=== PATIENT | male | born 1985 | race Caucasian/White ===

== ENCOUNTER → 2019-04-29 | Outpatient (CLI) | payer SELFPAY | PROVIDERS: Family Provider Family Medicine; Visit Provider Nurse Practitioner Psychiatric/Mental Health | DX: F41.9 Anxiety disorder, unspecified (principal); F39 Unspecified mood [affective] disorder; F15.10 Other stimulant abuse, uncomplicated ==

== ENCOUNTER → 2019-05-05 13:22 | Outpatient (BNVA) | payer MEDICAID, SELFPAY | PROVIDERS: Family Provider Family Medicine; PCP Family Medicine; Referring Provider Family Medicine; Visit Provider Family Medicine | DX: I10 Essential (primary) hypertension (principal); E78.00 Pure hypercholesterolemia, unspecified; E11.9 Type 2 diabetes mellitus without complications | CPT/HCPCS: 81003; 82947 ==

== ENCOUNTER → 2019-05-27 10:45 | Outpatient (BNVA) | payer MEDICAID, SELFPAY | PROVIDERS: Family Provider Family Medicine; PCP Family Medicine; Visit Provider Nurse Practitioner Psychiatric/Mental Health | DX: F15.159 Other stimulant abuse with stimulant-induced psychotic disorder, unspecified (principal); F41.9 Anxiety disorder, unspecified; F39 Unspecified mood [affective] disorder | CPT/HCPCS: 99213 ==

== ENCOUNTER → 2019-08-19 08:30 | Outpatient (BNVA) | payer MEDICAID, SELFPAY | PROVIDERS: Family Provider Family Medicine; PCP Family Medicine; Visit Provider Nurse Practitioner Psychiatric/Mental Health | DX: F41.9 Anxiety disorder, unspecified (principal); F15.159 Other stimulant abuse with stimulant-induced psychotic disorder, unspecified; F39 Unspecified mood [affective] disorder | CPT/HCPCS: 99212 ==

== ENCOUNTER → 2019-11-05 12:09 | Outpatient (BNVA) | payer MEDICAID, SELFPAY | PROVIDERS: Family Provider Family Medicine; PCP Family Medicine; Visit Provider Family Medicine | DX: E11.9 Type 2 diabetes mellitus without complications (principal); E78.00 Pure hypercholesterolemia, unspecified; I10 Essential (primary) hypertension; F41.1 Generalized anxiety disorder; F19.10 Other psychoactive substance abuse, uncomplicated; Z68.34 Body mass index [BMI] 34.0-34.9, adult; F17.211 Nicotine dependence, cigarettes, in remission | CPT/HCPCS: 80053; 80061; 83036; 83721 ==

== ENCOUNTER → 2019-11-11 08:13 | Outpatient (BNVA) | payer MEDICAID, SELFPAY | PROVIDERS: Family Provider Family Medicine; PCP Family Medicine; Visit Provider Nurse Practitioner Psychiatric/Mental Health | DX: F15.159 Other stimulant abuse with stimulant-induced psychotic disorder, unspecified (principal); E11.9 Type 2 diabetes mellitus without complications; E78.00 Pure hypercholesterolemia, unspecified; F39 Unspecified mood [affective] disorder; F10.10 Alcohol abuse, uncomplicated | CPT/HCPCS: 99212 ==

== ENCOUNTER → 2019-12-11 11:36 | Outpatient (BNVA) | payer MEDICAID, SELFPAY | PROVIDERS: Family Provider Family Medicine; PCP Family Medicine; Visit Provider Family Medicine | DX: E11.9 Type 2 diabetes mellitus without complications (principal) | CPT/HCPCS: 36416; 82962 ==

== ENCOUNTER → 2020-01-09 08:37 | Outpatient (BNVA) | payer MEDICAID, SELFPAY | PROVIDERS: Family Provider Family Medicine; PCP Family Medicine; Visit Provider Family Medicine | DX: E11.9 Type 2 diabetes mellitus without complications (principal) | CPT/HCPCS: 36416; 82962 ==

== ENCOUNTER → 2020-02-02 08:00 | Outpatient (BNVA) | payer MEDICAID, SELFPAY | PROVIDERS: Family Provider Family Medicine; PCP Family Medicine; Visit Provider Nurse Practitioner Psychiatric/Mental Health | DX: F15.159 Other stimulant abuse with stimulant-induced psychotic disorder, unspecified (principal); E78.00 Pure hypercholesterolemia, unspecified; F41.1 Generalized anxiety disorder | CPT/HCPCS: 99212 ==

== ENCOUNTER → 2020-03-01 07:45 | Outpatient (BNVA) | payer MEDICAID, SELFPAY | PROVIDERS: Family Provider Family Medicine; PCP Family Medicine; Visit Provider Nurse Practitioner Psychiatric/Mental Health | DX: F41.1 Generalized anxiety disorder (principal); F15.159 Other stimulant abuse with stimulant-induced psychotic disorder, unspecified | CPT/HCPCS: 99212 ==

== ENCOUNTER → 2020-04-12 08:48 | Outpatient (BNVA) | payer MEDICAID, SELFPAY | PROVIDERS: Family Provider Family Medicine; PCP Family Medicine; Visit Provider Nurse Practitioner Psychiatric/Mental Health | DX: F15.159 Other stimulant abuse with stimulant-induced psychotic disorder, unspecified (principal); F41.1 Generalized anxiety disorder | CPT/HCPCS: 99213 ==

== ENCOUNTER → 2020-05-10 07:51 | Outpatient (BNVA) | payer MEDICAID, SELFPAY | PROVIDERS: Family Provider Family Medicine; PCP Family Medicine; Visit Provider Nurse Practitioner Psychiatric/Mental Health | DX: F41.1 Generalized anxiety disorder (principal); F15.159 Other stimulant abuse with stimulant-induced psychotic disorder, unspecified | CPT/HCPCS: 99212 ==

== ENCOUNTER → 2020-05-18 10:43 | Outpatient (BNVA) | payer MEDICAID, SELFPAY | PROVIDERS: Family Provider Family Medicine; PCP Family Medicine; Visit Provider Family Medicine | DX: E78.00 Pure hypercholesterolemia, unspecified (principal); I10 Essential (primary) hypertension; E11.9 Type 2 diabetes mellitus without complications; R00.0 Tachycardia, unspecified | CPT/HCPCS: 80053; 80061; 83036; 83721 ==

== ENCOUNTER → 2020-07-26 08:41 | Outpatient (BNVA) | payer MEDICAID, SELFPAY | PROVIDERS: Family Provider Family Medicine; PCP Family Medicine; Visit Provider Nurse Practitioner Psychiatric/Mental Health | DX: F41.1 Generalized anxiety disorder (principal); F15.159 Other stimulant abuse with stimulant-induced psychotic disorder, unspecified | CPT/HCPCS: 99213 ==

== ENCOUNTER → 2020-10-19 07:38 | Outpatient (BNVA) | payer MEDICAID, SELFPAY | PROVIDERS: Family Provider Family Medicine; PCP Family Medicine; Visit Provider Nurse Practitioner Psychiatric/Mental Health | DX: F15.159 Other stimulant abuse with stimulant-induced psychotic disorder, unspecified (principal); F41.1 Generalized anxiety disorder | CPT/HCPCS: 99213 ==

== ENCOUNTER → 2021-01-11 07:45 | Outpatient (BNVA) | payer MEDICAID, SELFPAY | PROVIDERS: Family Provider Family Medicine; PCP Family Medicine; Visit Provider Nurse Practitioner Psychiatric/Mental Health | DX: F41.1 Generalized anxiety disorder (principal); F15.159 Other stimulant abuse with stimulant-induced psychotic disorder, unspecified | CPT/HCPCS: 99213 ==

== ENCOUNTER → 2021-01-31 11:34 | Outpatient (BNVA) | payer MEDICAID, SELFPAY | PROVIDERS: Family Provider Family Medicine; PCP Family Medicine; Visit Provider Family Medicine | DX: E11.9 Type 2 diabetes mellitus without complications (principal); E78.00 Pure hypercholesterolemia, unspecified; F19.10 Other psychoactive substance abuse, uncomplicated; I10 Essential (primary) hypertension; M17.12 Unilateral primary osteoarthritis, left knee | CPT/HCPCS: 80053; 80061; 83036; 83721; 85025 ==

== ENCOUNTER → 2021-03-02 13:06 | Outpatient (BNVA) | payer MEDICAID, SELFPAY | PROVIDERS: Family Provider Family Medicine; PCP Family Medicine; Referring Provider Family Medicine; Visit Provider Specialist | DX: M17.12 Unilateral primary osteoarthritis, left knee (principal) | CPT/HCPCS: 73560; 73565 ==

== ENCOUNTER → 2021-03-03 08:46 | Outpatient (BNVA) | payer MEDICAID, SELFPAY | PROVIDERS: Family Provider Family Medicine; PCP Family Medicine; Visit Provider Nurse Practitioner Psychiatric/Mental Health | DX: F15.159 Other stimulant abuse with stimulant-induced psychotic disorder, unspecified (principal); F41.1 Generalized anxiety disorder | CPT/HCPCS: 99213 ==

== ENCOUNTER 2021-04-11 09:17 | Outpatient (CLI) | payer MEDICAID, SELFPAY ==
--- NOTE | 2021-04-11 09:30 | MR_ITS ---
WS: [id number] MRI LEFT KNEE NONCONTRAST TECHNIQUE: Axial PD, coronal PD fat sat, coronal PD, sagittal PD, and sagittal PD fat-sat images obta ined. CLINICAL INFORMATION: M17.12 - Unilateral primary osteoarthritis, left knee COMPARISON: None. FINDINGS: Normal ACL and PCL. Distal quadriceps and patella tendons are intact. Slightly hypertrophic patella. Chronic thinning of the medial and lateral meniscus. Moderate narrowing of the medial and lateral joint compartments with grade II chondromalacia. No subc hondral edema. Small amount of subchondral edema involving the lateral joint compartment tibial plate au. Normal medial and lateral patellar retinaculum. Mild chondromalacia patella. No subchondral edema. Di stal quadriceps and patella tendons appear intact. Normal popliteal fossa. Normal medial collateral l igament. Small amount of fluid deep to the lateral collateral ligament which appears intact. MR/MR knee LT wo con* [id number] IMPRESSION: 1. Normal anterior and posterior cruciate ligaments. 2. Moderate joint space narrowing involving the medial and lateral joint emerita rtments with grade II chondromalacia. Small amount of subchondral edema involvi ng the lateral tibial plateau. 3. Small amount of fluid deep to the lateral collateral ligament which appears intact. 4. Mild chondromalacia patella. Normal patellar retinaculum. 5. Chronic thinning and intrasubstance signal abnormality involving the menisc us. No acute appearing meniscal tears. Outbridge grading: grade III: partial-thickness cartilage loss with focal ulcer ation
== END 2021-04-11 09:18 | disposition home or self-care (01) ==
LOC: RADSHAW 09:19
PROVIDERS: PCP Family Medicine; Visit Provider Specialist
DX: M17.12 Unilateral primary osteoarthritis, left knee (principal); M22.42 Chondromalacia patellae, left knee
CPT/HCPCS: 73721

== ENCOUNTER → 2021-05-11 11:07 | Outpatient (BNVA) | payer MEDICAID, SELFPAY | PROVIDERS: PCP Family Medicine; Visit Provider Family Medicine | DX: E11.9 Type 2 diabetes mellitus without complications (principal); E78.00 Pure hypercholesterolemia, unspecified; I10 Essential (primary) hypertension | CPT/HCPCS: 80053; 80061; 83036 ==

== ENCOUNTER → 2021-05-18 10:25 | Outpatient (BNVA) | payer MEDICAID, SELFPAY | PROVIDERS: PCP Family Medicine; Referring Provider Family Medicine; Visit Provider Anesthesiology Pain Medicine | DX: G89.29 Other chronic pain (principal); M47.816 Spondylosis without myelopathy or radiculopathy, lumbar region; M47.814 Spondylosis without myelopathy or radiculopathy, thoracic region; M41.9 Scoliosis, unspecified; Z87.891 Personal history of nicotine dependence | CPT/HCPCS: 99204 ==

== ENCOUNTER 2021-05-18 14:38 | Outpatient (CLI) | payer MEDICAID, SELFPAY ==
--- NOTE | 2021-05-18 14:42 | XR_ITS ---
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 COMPARISON: 2016 FINDINGS: Mild thoracic curve. Mild thoracic kyphosis. Anterior hypertrophic changes mid and lower thoracic spi ne.Chronic appearing biconcave compression deformities in the lower thoracic and upper lumbar spine. This appears relatively stable since 2016. XR/XR thoracic spine 3V* [id number] IMPRESSION: No acute thoracic spine findings.
--- NOTE | 2021-05-18 14:42 | XR_ITS ---
WS: [id number] LUMBAR SPINE TECHNIQUE: 5 views of the lumbar spine CLINICAL INFORMATION: M47.816 - Spondylosis without myelopathy or radiculopathy... COMPARISON: None. FINDINGS: Small riblets at T12. 5 nonrib-bearing lumbar vertebral bodies. Disc space narrowing worse L4-L5 and L5-S1. Bilateral pars defects L5-S1 with facet arthropathy. Slight anterolisthesis L5 on S1 measuring 4 mm is unchanged. No acute compression fractures. XR/XR lumbar spine min 4V [id number] IMPRESSION: 1. Disc space narrowing worse L4-L5 and L5-S1. 2. Bilateral pars defects L5-S1 with facet arthropathy. Slight anterolisthesis L5 on S1 measuring 4 mm is unchanged. 3. No acute compression fractures.
== END 2021-05-18 14:39 | disposition home or self-care (01) ==
LOC: RADOUTREAD 14:40 → WPI 14:41
PROVIDERS: PCP Family Medicine; Visit Provider Anesthesiology Pain Medicine
DX: M47.816 Spondylosis without myelopathy or radiculopathy, lumbar region (principal); M47.814 Spondylosis without myelopathy or radiculopathy, thoracic region
CPT/HCPCS: 72072; 72110

== ENCOUNTER → 2021-06-08 08:50 | Outpatient (BNVA) | payer MEDICAID, SELFPAY | PROVIDERS: PCP Family Medicine; Visit Provider Anesthesiology Pain Medicine | DX: G89.29 Other chronic pain (principal); M47.816 Spondylosis without myelopathy or radiculopathy, lumbar region; M47.814 Spondylosis without myelopathy or radiculopathy, thoracic region; M41.9 Scoliosis, unspecified; Z87.891 Personal history of nicotine dependence | CPT/HCPCS: 99214 ==

== ENCOUNTER → 2021-06-09 08:31 | Outpatient (BNVA) | payer MEDICAID, SELFPAY | PROVIDERS: PCP Family Medicine; Visit Provider Nurse Practitioner Psychiatric/Mental Health | DX: F41.1 Generalized anxiety disorder (principal); F15.159 Other stimulant abuse with stimulant-induced psychotic disorder, unspecified; M54.9 Dorsalgia, unspecified; G89.29 Other chronic pain | CPT/HCPCS: 99214 ==

== ENCOUNTER → 2021-07-05 09:31 | Outpatient (BNVA) | payer MEDICAID, SELFPAY | PROVIDERS: PCP Family Medicine; Visit Provider Nurse Practitioner Psychiatric/Mental Health | DX: F41.1 Generalized anxiety disorder (principal); M54.9 Dorsalgia, unspecified; F15.159 Other stimulant abuse with stimulant-induced psychotic disorder, unspecified; G89.29 Other chronic pain | CPT/HCPCS: 99214 ==

== ENCOUNTER → 2021-07-07 08:46 | Outpatient (BNVA) | payer MEDICAID, SELFPAY | PROVIDERS: PCP Family Medicine; Visit Provider Anesthesiology Pain Medicine | DX: G89.29 Other chronic pain (principal); M47.816 Spondylosis without myelopathy or radiculopathy, lumbar region; M47.814 Spondylosis without myelopathy or radiculopathy, thoracic region; M41.9 Scoliosis, unspecified; G62.9 Polyneuropathy, unspecified; Z87.891 Personal history of nicotine dependence | CPT/HCPCS: 99214 ==

== ENCOUNTER → 2021-08-23 08:06 | Outpatient (BNVA) | payer MEDICAID, SELFPAY | PROVIDERS: PCP Family Medicine; Visit Provider Nurse Practitioner Psychiatric/Mental Health | DX: F41.1 Generalized anxiety disorder (principal); F15.159 Other stimulant abuse with stimulant-induced psychotic disorder, unspecified; M54.9 Dorsalgia, unspecified; G89.29 Other chronic pain | CPT/HCPCS: 99214 ==

== ENCOUNTER → 2021-09-13 09:14 | Outpatient (BNVA) | payer MEDICAID, SELFPAY | PROVIDERS: PCP Family Medicine; Visit Provider Family Medicine | DX: E11.42 Type 2 diabetes mellitus with diabetic polyneuropathy (principal); E78.00 Pure hypercholesterolemia, unspecified; M54.9 Dorsalgia, unspecified; G89.29 Other chronic pain; F19.10 Other psychoactive substance abuse, uncomplicated; I10 Essential (primary) hypertension | CPT/HCPCS: 80053; 80061; 82607; 83036; 85025 ==

== ENCOUNTER → 2021-10-18 08:07 | Outpatient (BNVA) | payer MEDICAID, SELFPAY | PROVIDERS: PCP Family Medicine; Visit Provider Nurse Practitioner Psychiatric/Mental Health | DX: F41.1 Generalized anxiety disorder (principal); F15.159 Other stimulant abuse with stimulant-induced psychotic disorder, unspecified; M54.9 Dorsalgia, unspecified; G89.29 Other chronic pain | CPT/HCPCS: 99213 ==

== ENCOUNTER → 2021-10-27 13:45 | Outpatient (BNVA) | payer MEDICAID, SELFPAY | PROVIDERS: PCP Family Medicine; Visit Provider Anesthesiology Pain Medicine | DX: G89.29 Other chronic pain (principal); M47.816 Spondylosis without myelopathy or radiculopathy, lumbar region; M47.814 Spondylosis without myelopathy or radiculopathy, thoracic region; M41.9 Scoliosis, unspecified; M79.604 Pain in right leg; M79.605 Pain in left leg; G62.9 Polyneuropathy, unspecified; Z87.891 Personal history of nicotine dependence | CPT/HCPCS: 99214; J1100 ==

== ENCOUNTER → 2021-12-29 12:51 | Outpatient (BNVA) | payer MEDICAID, SELFPAY | PROVIDERS: PCP Family Medicine; Visit Provider Anesthesiology Pain Medicine | DX: G89.29 Other chronic pain (principal); M47.816 Spondylosis without myelopathy or radiculopathy, lumbar region; M47.814 Spondylosis without myelopathy or radiculopathy, thoracic region; G62.9 Polyneuropathy, unspecified; Z87.891 Personal history of nicotine dependence; M41.9 Scoliosis, unspecified | CPT/HCPCS: 99214 ==

== ENCOUNTER → 2022-03-02 12:56 | Outpatient (BNVA) | payer MEDICAID, SELFPAY | PROVIDERS: PCP Family Medicine; Visit Provider Anesthesiology Pain Medicine | DX: G89.29 Other chronic pain (principal); M47.816 Spondylosis without myelopathy or radiculopathy, lumbar region; M47.814 Spondylosis without myelopathy or radiculopathy, thoracic region; M41.9 Scoliosis, unspecified; M25.571 Pain in right ankle and joints of right foot; M25.572 Pain in left ankle and joints of left foot; G62.9 Polyneuropathy, unspecified; Z87.891 Personal history of nicotine dependence | CPT/HCPCS: 99214 ==

== ENCOUNTER → 2022-03-14 10:55 | Outpatient (BNVA) | payer MEDICAID, SELFPAY | PROVIDERS: PCP Family Medicine; Visit Provider Podiatrist Foot & Ankle Surgery | DX: M77.41 Metatarsalgia, right foot (principal); M77.42 Metatarsalgia, left foot; M21.6X1 Other acquired deformities of right foot; M21.6X2 Other acquired deformities of left foot; E11.9 Type 2 diabetes mellitus without complications; G62.9 Polyneuropathy, unspecified; Z79.84 Long term (current) use of oral hypoglycemic drugs | CPT/HCPCS: 73630 ==

== ENCOUNTER 2022-03-14 11:33 | Outpatient (CLI) | payer MEDICAID, SELFPAY | END 2022-03-14 11:34 | disposition home or self-care (01) | LOC: SPT 11:34 | PROVIDERS: PCP Family Medicine; Visit Provider Podiatrist Foot & Ankle Surgery | DX: Z46.89 Encounter for fitting and adjustment of other specified devices (principal); M79.671 Pain in right foot; M79.672 Pain in left foot; M77.41 Metatarsalgia, right foot; M77.42 Metatarsalgia, left foot; M21.6X1 Other acquired deformities of right foot; M21.6X2 Other acquired deformities of left foot; E11.9 Type 2 diabetes mellitus without complications; G62.9 Polyneuropathy, unspecified; Z79.84 Long term (current) use of oral hypoglycemic drugs | CPT/HCPCS: 97760; 99204; L4397 ==

== ENCOUNTER → 2022-03-22 13:26 | Outpatient (BNVA) | payer MEDICAID, SELFPAY | PROVIDERS: PCP Family Medicine; Visit Provider Family Medicine | DX: E78.00 Pure hypercholesterolemia, unspecified (principal); E11.9 Type 2 diabetes mellitus without complications; I10 Essential (primary) hypertension | CPT/HCPCS: 80053; 80061; 83036; 83721; 85025 ==

== ENCOUNTER → 2022-06-05 09:44 | Outpatient (BNVA) | payer MEDICAID, SELFPAY | PROVIDERS: PCP Family Medicine; Visit Provider Anesthesiology Pain Medicine | DX: G89.29 Other chronic pain (principal); M47.816 Spondylosis without myelopathy or radiculopathy, lumbar region; M47.814 Spondylosis without myelopathy or radiculopathy, thoracic region; M41.9 Scoliosis, unspecified; G62.9 Polyneuropathy, unspecified; M25.571 Pain in right ankle and joints of right foot; M25.572 Pain in left ankle and joints of left foot | CPT/HCPCS: 99213 ==

== ENCOUNTER → 2022-08-14 16:11 | Outpatient (BNVA) | payer MEDICAID, SELFPAY | PROVIDERS: PCP Family Medicine; Visit Provider Family Medicine | DX: E78.00 Pure hypercholesterolemia, unspecified (principal); I10 Essential (primary) hypertension; E11.9 Type 2 diabetes mellitus without complications | CPT/HCPCS: 80053; 80061; 82150; 83036; 85025 ==

== ENCOUNTER 2022-08-31 02:51 | Emergency (ER) | payer MEDICAID, SELFPAY ==
[2022-08-31 03:01] VITALS: BP 157/80; PULSE 78; RESP 16; TEMP 36.8; O2SAT 98; BMI 31.7
[2022-08-31 03:07] VITALS: BP 157/80; PULSE 76; RESP 16; O2SAT 96
--- NOTE | 2022-08-31 03:07 | W.ED.NEUROSD ---
HPI - Neuro Symptoms/Deficit General: Chief Complaint: Neuro Symptoms/Deficit Stated Complaint: right fce numb headache Time Seen by Provider: 08/31/22 02:55 Source: patient Mode of arrival: ambulatory Limitations: no limitations History of Present Illness: 37-year-old male has history of Zavala's palsy many years ago he states that he has noticed some numbness to the right side of his face throughout the day and then over the last few hours had increasing facial droop. He does have severe facial droop to the right side with no eyebrow sparing. He states that a hard time closing his eyes well. He denies any weakness has a mild headache he rates a 2 out of 10. Denies any fevers Associated symptoms: Reports headache(s); Deny chest pain, nausea or vomiting Review of Systems Const: Denies: fever(s), chills or body aches Eyes: Denies: blurry vision or eye discomfort ENMT: Denies: throat pain or dental pain Card: Denies: chest pain Resp: Denies: dyspnea GI: Denies: abdominal pain, nausea, vomiting or diarrhea Musc: Denies: neck pain or back pain Skin/Breast: Denies: rash Neuro: Reports: headache(s) PFSH ED PFSH: Medical History Abuse, drug or alcohol Arthritis of knee, left Chronic back pain Essential hypertension Hypercholesteremia Psychiatric care Social History Smoking and tobacco status: former smoker Second hand smoke exposure: No Alcohol intake: never Substance/Drug Use: never Physical Exam Const: COMMON NORMALS: no acute distress, patient oriented x3 and healthy appearing HENMT: COMMON NORMALS: normocephalic and atraumatic HEAD & SCALP: normocephalic and atraumatic Eye: COMMON NORMALS: Equal, round and reactive pupils present, EOMs intact bilaterally and conjunctivae normal CONJUNCTIVA: Yes conjunctivae normal PUPIL: Yes Equal, round and reactive pupils present Neck/C-Spine: COMMON NORMALS: full ROM and supple Chest: COMMONS NORMALS: normal inspection of the chest Resp: COMMON NORMALS: normal respiratory effort Cardio: COMMON NORMALS: regular rate, regular rhythm and No murmurs present (Cardio) RATE: regular rate RHYTHM: regular rhythm GI: COMMON NORMALS: Normal to inspection, nondistended, normoactive bowel sounds present, Soft to palpation, non-tender and no masses PALPATION: Yes Soft to palpation Extremity: COMMON NORMALS: normal to inspection and full ROM Neuro: COMMON NORMALS: patient oriented x3 and moves all extremities SPEECH: speech normal GAIT: Yes Normal gait present MOTOR EXAM: 5/5 motor strength present throughout OTHER: Dense Zavala's palsy to the right side with right-sided facial droop Psych: COMMON NORMALS: mental status grossly normal, Normal thought process present and cooperative THOUGHT PROCESS: Normal thought process present Skin: COMMON NORMALS: no rashes or lesions noted and no wounds GENERAL SKIN EXAM: no rashes or lesions noted Course Vital Signs: Vital signs: Vital Signs Temperature 98.3 F 08/31/22 03:01 Pulse Rate 76 08/31/22 03:07 Respiratory Rate 16 08/31/22 03:07 Blood Pressure 157/80 08/31/22 03:07 Pulse Oximetry 96 08/31/22 03:07 Oxygen Delivery Me thod Room Air 08/31/22 03:01 MDM - Neuro Symptoms/Deficit Medical Decision Making Patient presents with right-sided facial droop consistent with Zavala's palsy is a mild headache no signs subarachnoid hemorrhage he states that 2 out of 10 we will treat him with prednisone and valacyclovir did inform him he needs to keep his eye moist with eyedrops and did tape it shut at night. Differential Diagnosis Unlikely cerebrovascular accident Discharge Plan Discharge Patient Disposition: Home Clinical Impression: Zavala's palsy Condition: Stable Prescriptions: New prednisone 50 mg tablet 50 mg PO DAILY 5 Days Qty: 10 0RF valacyclovir 1 gram tablet 1,000 mg PO Q8H 7 Days Qty: 21 0RF No Action lidocaine (PF) 10 mg/mL (1 %) syringe 1 ml Infiltration ONCE Qty: 1 0RF naproxen sodium 220 mg capsule 440 mg PO BID PRN gabapentin 300 mg capsule 300 mg PO QID 30 Days Qty: 120 5RF cyclobenzaprine 10 mg tablet 10 mg PO TID PRN (Reason: muscle spasm) Qty: 60 4RF (DME) Night Splint See Rx Instructions .Route .MEDSUPPLY Qty: 1 0RF Rx Instructions: As directed ([facility] [place]) [employer] Ultra Test Strip See Rx Instructions .Route Qty: 100 3RF Rx Instructions: to use in onetouch meter once daily 90 day supply citalopram 20 mg tablet 20 mg PO .each evening Qty: 90 0RF Rx Instructions: Take one tablet by mouth each evening olanzapine 20 mg tablet 20 mg PO DAILY Qty: 90 0RF Rx Instructions: Take one tablet daily at bedtime clonazepam 1 mg tablet 1 mg PO BID PRN (Reason: anxiety/agitation) 15 Days Qty: 30 2RF Rx Instructions: Take one tablet morning and at bedtime, if needed for anxiety/agitation olanzapine 5 mg tablet,disintegrating 5 mg PO DAILY PRN (Reason: agitation/anxiety) Qty: 10 2RF Rx Instructions: Take one tablet daily, if needed for agitation labetalol 200 mg tablet See Rx Instructions .ROUTE .COMPLEX Qty: 60 6RF Dose Instruction: take 1/2 tablet BY MOUTH TWICE DAILY FOR 1-2 weeks THEN ONE TWICE DAILY Rx Instructions: take 1/2 tablet BY MOUTH TWICE DAILY FOR 1-2 weeks THEN ONE TWICE DAILY rosuvastatin 10 mg tablet 10 mg PO DAILY Qty: 30 5RF Discharge Orders: Discharge ED (Routine); Ordered 08/31/22 Ordered By: Marcy Rios Referrals: Narendra Collier MD [Primary Care Provider] - 1-3 days Discharge Diet: Advance as tolerated Discharge Activity: Resume usual activity Patient Instructions: Zavala Palsy (ED) Coding Level of Care Code ED Poker Supervisor for Maru Campbell
[2022-08-31 03:25] VITALS: BP 144/68; PULSE 79; RESP 16; O2SAT 97
== END 2022-08-31 03:26 | disposition home or self-care (01) ==
PROVIDERS: Emergency Provider Emergency Medicine; PCP Family Medicine
DX: G51.0 Bell's palsy (principal); Z87.891 Personal history of nicotine dependence; I10 Essential (primary) hypertension
CPT/HCPCS: 99283

== ENCOUNTER → 2023-01-29 10:26 | Outpatient (BNVA) | payer MEDICAID, SELFPAY | PROVIDERS: PCP Family Medicine; Visit Provider Family Medicine | DX: G62.9 Polyneuropathy, unspecified (principal); E78.00 Pure hypercholesterolemia, unspecified; E11.9 Type 2 diabetes mellitus without complications; F15.159 Other stimulant abuse with stimulant-induced psychotic disorder, unspecified; G51.0 Bell's palsy; M54.9 Dorsalgia, unspecified; G89.29 Other chronic pain; I10 Essential (primary) hypertension | CPT/HCPCS: 80053; 80061; 83036; 85025 ==

== ENCOUNTER → 2023-03-29 18:54 | Outpatient (BNVA) | payer MEDICAID, SELFPAY | PROVIDERS: PCP Family Medicine; Visit Provider Nurse Practitioner | DX: S92.492A Other fracture of left great toe, initial encounter for closed fracture (principal); W22.8XXA Striking against or struck by other objects, initial encounter | CPT/HCPCS: 73630 ==

== ENCOUNTER 2023-11-11 17:28 | Emergency (ER) | payer MEDICAID, SELFPAY ==
[2023-11-11 17:39] VITALS: BP 176/95; PULSE 104; RESP 16; TEMP 37.2; O2SAT 96; BMI 30.8
--- NOTE | 2023-11-11 18:46 | ED_ITS ---
HPI - Wound/Laceration General: Chief Complaint: Wound/Laceration Stated Complaint: ripped toenail off, infection Time Seen by Provider: 11/11/23 18:46 History of Present Illness: 38-year-old male patient comes in today with injury to the third toe of right foot. Patient states 1 week ago he had dropped a weight on his toe and the nail had fallen off. Patient reports that it appears that the wound had healed well and he had went swimming yesterday. Patient today noticed some increased redness and tenderness to the distal toe. Patient appears nontoxic. Pulses intact to the foot. Redness is noted only to the nail area and distal toe. Patient has a history of high blood pressure. Review of Systems General: Reports: 10 or more systems reviewed and unremarkable except in HPI and below Musc: Reports: extremity pain and extremity swelling [facility] ED PFSH: Medical History Substance-induced anxiety disorder Chronic back pain Arthritis of knee, left Psychiatric care Abuse, drug or alcohol Hypercholesteremia Essential hypertension Social History Smoking and tobacco/nicotine status: former use of tobacco/nicotine Second hand smoke exposure: No Alcohol intake: never Substance/Drug Use: never Physical Exam Const: COMMON NORMALS: alert HENMT: COMMON NORMALS: normocephalic HEAD & SCALP: normocephalic Neck/C-Spine: COMMON NORMALS: full ROM Resp: COMMON NORMALS: normal respiratory effort and clear to auscultation bilaterally AUSCULTATION: clear to auscultation bilaterally Cardio: COMMON NORMALS: regular rate and regular rhythm RATE: regular rate RHYTHM: regular rhythm GI: COMMON NORMALS: Soft to palpation and non-tender PALPATION: Yes Soft to palpation Back/Pelvis: COMMON NORMALS: thoracic and lumbar spine normal to inspection Extremity: RIGHT LOWER EXTREMITY: Yes foot & digits (Third toe, distal redness and swelling nail avulsed) Neuro: SENSORIUM/ORIENTATION: Yes alert Skin: NARRATIVE SKIN EXAM: Avulsed nail third toe right foot. Course Vital Signs: Vital signs: Vital Signs Temperature 98.9 F 11/11/23 17:39 Pulse Rate 104 H 11/11/23 17:39 Respiratory Rate 16 11/11/23 17:39 Blood Pressure 176/95 11/11/23 17:39 Pulse Oximetry 96 11/11/23 17:39 MDM - Wound/Laceration Medical Decision Making 38-year-old male patient comes in today for complaints of redness and tenderness to the distal toe on the right foot. On exam patient appears nontoxic. Patient appears no acute distress. Respirations are even and lungs are clear to auscultation. Skin is warm and dry. Differential diagnosis includes but not limited to wound infection, nail avulsion, contusion toe, distal toe fracture. Patient cannot recall his last tetanus and it was updated. Wound was cleaned and mupirocin antibiotic ointment was applied to it. Patient be placed on Levaquin due to exposure of fresh water to the wound and now infection. Patient reports understanding of care plan and need for follow-up or return to the ER. No radiology studies performed this visit Discharge Plan Discharge Patient Disposition: Home Clinical Impression: Paronychia of toe of left foot, Need for prophylactic vaccination against diphtheria and tetanus Nail avulsion of toe Qualifiers: Encounter type: initial encounter Qualified Code(s): S91.209A - Unspecified open wound of unspecified toe(s) with damage to nail, initial encounter Condition: Stable Prescriptions: New levofloxacin 750 mg tablet 750 mg PO DAILY 6 Days Qty: 6 0RF mupirocin 2 % ointment 1 applic topical BID Qty: 22 0RF No Action lidocaine (PF) 10 mg/mL (1 %) syringe 1 ml Infiltration ONCE Qty: 1 0RF (DME) OneTouch Ultra Test Strip See Rx Instructions .Route Qty: 100 3RF Rx Instructions: to use in onetouch meter once daily 90 day supply olanzapine 5 mg tablet,disintegrating 5 mg PO DAILY PRN (Reason: agitation/anxiety) Qty: 30 2RF Rx Instructions: Take one tablet daily, if needed for agitation olanzapine 20 mg tablet 20 mg PO DAILY Qty: 30 2RF Rx Instructions: Take one tablet daily at bedtime citalopram 40 mg tablet 40 mg PO DAILY Qty: 30 2RF Rx Instructions: Take one tablet by mouth once a day; stop 20 mg dose rosuvastatin 10 mg tablet 10 mg PO DAILY Qty: 30 5RF labetalol 200 mg tablet See Rx Instructions .ROUTE .COMPLEX Qty: 60 6RF Dose Instruction: take 1/2 tablet BY MOUTH TWICE DAILY FOR 1-2 WEEKS THEN ONE TWICE DAILY Rx Instructions: take 1/2 tablet BY MOUTH TWICE DAILY FOR 1-2 WEEKS THEN ONE TWICE DAILY clonazepam 1 mg tablet 1 mg PO TID PRN (Reason: anxiety/agitation) 15 Days Qty: 30 2RF Discharge Orders: Discharge ED (Routine); Ordered 11/11/23 Ordered By: Abimael Martinez Referrals: Narendra Collier MD [Primary Care Provider] - Discharge Diet: Usual diet Discharge Activity: Increase activity as tolerated Patient Instructions: Paronychia (ED) Activity Restrictions/Additional Instructions: Take antibiotic as directed. Elevate foot is much as possible. Acetaminophen or ibuprofen for pain. Drink plenty of water with medications. Follow-up with primary care in 3 to 5 days for recheck. Return to ED for worsening symptoms. Coding Level of Care Code ED Lunchroom Food Service Supervisor for Maru Campbell
[2023-11-11] MEDS: tetanus-dipt-pertussis 0.5 mL SDV IM (19:18)
[2023-11-11] MEDS: levoFLOXacin 750 mg Tablet PO (19:18)
[2023-11-11] MEDS: mupirocin oint 22 gm 1 APPLIC TOPICAL (19:18)
[2023-11-11 19:22] VITALS: RESP 16
== END 2023-11-11 19:22 | disposition home or self-care (01) ==
PROVIDERS: Emergency Provider Nurse Practitioner Family; PCP Family Medicine
DX: S91.204A Unspecified open wound of right lesser toe(s) with damage to nail, initial encounter (principal); I10 Essential (primary) hypertension; Z87.891 Personal history of nicotine dependence; W20.8XXA Other cause of strike by thrown, projected or falling object, initial encounter; L03.032 Cellulitis of left toe; Z23 Encounter for immunization
CPT/HCPCS: 90471; 90715; 99283

== ENCOUNTER → 2024-02-04 10:41 | Outpatient (BNVA) | payer MEDICAID, SELFPAY | PROVIDERS: PCP Family Medicine; Visit Provider Family Medicine | DX: I10 Essential (primary) hypertension (principal) | CPT/HCPCS: 80053; 85025 ==

== ENCOUNTER → 2024-03-10 10:38 | Outpatient (BNVA) | payer SELFPAY | PROVIDERS: PCP Family Medicine; Visit Provider Nurse Practitioner Psychiatric/Mental Health | DX: Z79.899 Other long term (current) drug therapy (principal) | CPT/HCPCS: 80053; 80061; 83036 ==

== ENCOUNTER → 2025-02-17 10:03 | Outpatient (BNVA) | payer OTHER, SELFPAY | PROVIDERS: PCP Family Medicine; Visit Provider Nurse Practitioner Psychiatric/Mental Health | DX: Z79.899 Other long term (current) drug therapy (principal) | CPT/HCPCS: 80061; 83036; 83721 ==